=== PATIENT | male | born 1950 | race Caucasian/White ===

== ENCOUNTER 2022-03-27 02:08 | Emergency (ER) ==
[2022-03-27 04:23] LABS: ALT (SGPT) 21 U/L (8-55); AST (SGOT) 11 U/L (5-34); Albumin 3.7 g/dL (3.4-4.8); Alkaline Phosphatase 136 U/L (40-110); Anion Gap 14 mmol/L (10-20); BUN (Urea Nitrogen) 16 mg/dL (8.4-25.7); Bilirubin, Total 0.5 mg/dL (0.2-1.2); Calc. Creatinine Clearance 0 mL/min (70-130); Calcium 8.7 mg/dL (7.8-10.44); Carbon Dioxide 23 mmol/L (23-31); Chloride 105 mmol/L (98-107); Estimated GFR 53; Globulin 3.4 g/dL (2.4-3.5); Glucose 118 mg/dL (80-115); Potassium 3.9 mmol/L (3.5-5.1); Protein, Total 7.1 g/dL (5.8-8.1); Sodium 138 mmol/L (136-145)
[2022-03-27 04:24] LABS: #Eosinphils 0.1 thou/uL (0.0-0.7); #Lymphocytes 2.2 thou/uL (1.20-3.40); #Monocytes 0.9 thou/uL (0.11-0.59); #Neutrophils 6.8 thou/uL (1.40-6.50); %Basophils 0.2 % (0.0-1.0); %Eosinophils 1.3 % (0.0-10.0); %Lymphocytes 22.1 % (21.0-51.0); %Monocytes 8.7 % (0.0-10.0); %Neutrophils 67.7 % (42.0-75.0); Hemoglobin 16.3 g/dL (14.0-18.0); Mean Corpuscular HGB CONC 32.8 g/dL (32.0-36.0); Mean Corpuscular Hemoglobin 31.1 pg (27.0-31.0); Mean Corpuscular Volume 94.7 fl (78.0-98.0); Mean Platelet Volume 8.8 fL (7.4-10.4); Platelet Count 237 10x3/uL (130-400); RBC Distribution Width 13.5 % (11.5-14.5); Red Blood Cell (RBC) Count 5.25 mill/uL (4.70-6.10); White Blood Cell (WBC) Count 10.1 10x3/uL (4.8-10.8)
[2022-03-27] MEDS ORDERED: Morphine 4 MG/ML VIAL ONE (04:41)
[2022-03-27] MEDS ORDERED: Ondansetron PF 4 MG/2 ML Vial ONE (04:41)
[2022-03-27 04:47] LABS: CKMB 1.6 ng/mL (0-6.6)
[2022-03-27 05:28] LABS: Bilirubin Negative (Negative); Blood, Urine Negative (Negative); Clarity Clear (Clear); Glucose, Urine (Dipstick) >=1000 mg/dL (Negative); Ketone, Urine Negative (Negative); Leukocyte Negative Leu/uL (Negative); Nitrite Negative (Negative); Protein, Urine (Dipstick) Negative (Neg-Trace); Specific Gravity, Urine 1.009 (1.002-1.036); Urobilinogen Normal mg/dL (Less than 2)
[2022-03-27 06:32] LABS: Troponin I 0.034 ng/mL (< 0.028)
[2022-03-27] MEDS ORDERED: Iopamidol-370 76% 500 ML 1 ML ONE (10:10)
== END 2022-03-27 06:52 | disposition home or self-care (01) ==
LOC: ERS 02:08
DX: M54.9 Dorsalgia, unspecified (principal); I10 Essential (primary) hypertension; E11.9 Type 2 diabetes mellitus without complications; E78.00 Pure hypercholesterolemia, unspecified; J44.9 Chronic obstructive pulmonary disease, unspecified
CPT/HCPCS: 36415; 71275; 74174; 80053; 81003; 82553; 84484; 85025; 93005; 96374; 96375; J2270; J2405

== ENCOUNTER 2022-08-31 07:44 | Outpatient (CLI) | payer MEDICARE, BC ==
[2022-08-31] MEDS ORDERED: Iopamidol 370 76% 100 ML VIAL ONE (09:41)
== END 2022-08-31 07:45 | disposition home or self-care (01) ==
LOC: CT 07:44
PROVIDERS: ATTEND Student in an Organized Health Care Education/Training Program
DX: R10.84 Generalized abdominal pain (principal); R19.7 Diarrhea, unspecified; R63.4 Abnormal weight loss; N20.2 Calculus of kidney with calculus of ureter; K55.1 Chronic vascular disorders of intestine; I77.1 Stricture of artery; R91.1 Solitary pulmonary nodule
CPT/HCPCS: 74178; 82565

== ENCOUNTER 2022-10-08 13:31 | Outpatient (CLI) | payer MEDICARE, BC ==
[2022-10-08 15:03] LABS: Hemoglobin 15.9 g/dL (13.5-17.5); Mean Corpuscular HGB CONC 32.7 g/dL (32.0-36.0); Mean Corpuscular Hemoglobin 26.7 pg (27.0-33.0); Mean Corpuscular Volume 81.5 fl (81.2-95.1); Mean Platelet Volume 11.2 fl (7.4-10.4); Platelet Count 339 10x3/uL (150-450); RBC Distribution Width 17.8 % (11.5-14.5); Red Blood Cell (RBC) Count 5.96 10x6/uL (4.32-5.72); White Blood Cell (WBC) Count 16.6 10x3/uL (3.5-10.5)
[2022-10-08 15:28] LABS: Anion Gap 18 mmol/L (10-20); BUN (Urea Nitrogen) 10 mg/dL (8.4-25.7); Calc. Creatinine Clearance 0 mL/min (70-130); Calcium 8.9 mg/dL (7.8-10.44); Carbon Dioxide 23 mmol/L (23-31); Chloride 101 mmol/L (98-107); Estimated GFR 77; Glucose 156 mg/dL (80-115); Sodium 138 mmol/L (136-145)
== END 2022-10-08 13:32 | disposition home or self-care (01) ==
LOC: LABBT 13:31
PROVIDERS: ATTEND Thoracic Surgery (Cardiothoracic Vascular Surgery)
DX: Z01.812 Encounter for preprocedural laboratory examination (principal); I70.203 Unspecified atherosclerosis of native arteries of extremities, bilateral legs
CPT/HCPCS: 80048; 85027

== ENCOUNTER 2022-10-09 05:46 | Day surgery (SDC) | payer MEDICARE, BC ==
[2022-10-08 14:08] VITALS: BMI 28.8
[2022-10-09] MEDS ORDERED: Lidocaine 1% (PF) 30 ML VIAL ONE (06:10)
[2022-10-09] MEDS ORDERED: Heparin 10,000 UNITS/ 10 ML VIAL ONE ×2 (06:10→08:06)
[2022-10-09] MEDS ORDERED: Midazolam HCl 2 mg/2 ml Vial ONE (06:11)
[2022-10-09] MEDS ORDERED: fentaNYL 50 mcg/mL 1 mL Vial ONE (06:11)
[2022-10-09] MEDS ORDERED: CEFAZOLIN 2 GM VIAL ONE (06:49)
[2022-10-09] MEDS ORDERED: Protamine Sulfate 50 MG/5 ML VIAL ONE (08:27)
[2022-10-09] MEDS ORDERED: Clopidogrel Bisulfate 75 MG TAB ONE (09:23)
[2022-10-09] MEDS ORDERED: Iopamidol 370 76% 100 ML VIAL ONE (17:07)
== END 2022-10-09 15:23 | disposition home or self-care (01) ==
LOC: SDC 05:46
PROVIDERS: ATTEND Thoracic Surgery (Cardiothoracic Vascular Surgery)
PROC: B40DYZZ Plain Radiography of Aorta and Bilateral Lower Extremity Arteries using Other Contrast (ICD-10-PCS; principal; 2022-10-09)
DX: I70.213 Atherosclerosis of native arteries of extremities with intermittent claudication, bilateral legs (principal); K55.1 Chronic vascular disorders of intestine
CPT/HCPCS: 37236; 37237; 85347 ×2; J3010; 36245; 75726; 75774; C1725; C1769; C1874; C1887; C1894; J1644; J2001; J2250; J2720; Q9967

== ENCOUNTER 2023-04-07 14:09 | Outpatient (CLI) | payer MEDICARE, BC | END 2023-04-07 14:10 | disposition home or self-care (01) | LOC: BICRAD 14:09 | PROVIDERS: ATTEND Podiatrist | DX: L97.529 Non-pressure chronic ulcer of other part of left foot with unspecified severity (principal) ==

== ENCOUNTER 2024-06-01 13:57 | Emergency (ER) | payer MEDICARE, BC | END 2024-06-01 17:24 | disposition home or self-care (01) | LOC: ERS 13:57 | DX: I77.2 Rupture of artery (principal); M19.072 Primary osteoarthritis, left ankle and foot; Z55.6 Problems related to health literacy; F17.210 Nicotine dependence, cigarettes, uncomplicated; J44.9 Chronic obstructive pulmonary disease, unspecified; I25.2 Old myocardial infarction; I10 Essential (primary) hypertension; Z95.1 Presence of aortocoronary bypass graft | CPT/HCPCS: 99283 ==

== ENCOUNTER 2025-03-01 13:24 | Outpatient (CLI) | payer MEDICARE, BC ==
[2025-03-01 14:13] LABS: #Basophils 0.04 10x3/uL (0.0-0.2); #Eosinophils 0.08 10x3/uL (0.0-0.7); #Monocytes 0.69 10x3/uL (0.11-0.59); #Neutrophils 5.85 10x3/uL (1.40-6.50); %Basophils 0.5 % (0.0-1.0); %Eosinophils 1.0 % (0.0-10.0); %Lymphocytes 17.7 % (21.0-51.0); %Monocytes 8.5 % (0.0-10.0); %Neutrophils 71.9 % (42.0-75.0); Hematocrit 42.4 % (42.0-52.0); Hemoglobin 13.8 g/dL (14.0-18.0); Mean Corpuscular Hemoglobin 28.6 pg (27.0-31.0); Mean Corpuscular Volume 88.0 fL (78.0-98.0); Platelet Count 241 10x3/uL (130-400); Red Blood Cell (RBC) Count 4.82 mill/uL (4.70-6.10); White Blood Cell (WBC) Count 8.13 10x3/uL (4.8-10.8)
[2025-03-01 14:40] LABS: ALT (SGPT) 23 U/L (Less than 45); AST (SGOT) 23 U/L (11-34); Albumin 3.1 g/dL (3.1-4.5); Alkaline Phosphatase 134 U/L (40-110); Anion Gap 15 mmol/L (10-20); BUN (Urea Nitrogen) 14 mg/dL (8.4-25.7); Bilirubin, Total 1.0 mg/dL (0.3-1.2); Calc. Creatinine Clearance 0 mL/min (70-130); Calcium 8.6 mg/dL (7.8-10.44); Carbon Dioxide 21 mmol/L (23-31); Chloride 107 mmol/L (98-107); Globulin 4.2 g/dL (2.4-3.5); Glucose 129 mg/dL (83-110); Potassium 5.8 mmol/L (3.5-5.1); Sodium 137 mmol/L (136-145)
== END 2025-03-01 13:25 | disposition home or self-care (01) ==
LOC: LABBT 13:24
PROVIDERS: ATTEND Internal Medicine Cardiovascular Disease
DX: Z01.812 Encounter for preprocedural laboratory examination (principal); I25.10 Atherosclerotic heart disease of native coronary artery without angina pectoris
CPT/HCPCS: 80053; 85025

== ENCOUNTER 2025-03-05 06:25 | Day surgery (SDC) | payer MEDICARE, BC ==
[2025-03-05] MEDS ORDERED: Heparin 10,000 UNITS/ 10 ML VIAL ONE (07:57)
[2025-03-05] MEDS ORDERED: Lidocaine 1% (PF) 30 ML VIAL ONE (07:57)
[2025-03-05] MEDS ORDERED: Adenosine 6 mg (2 mL) VIAL ONE (07:57)
[2025-03-05] MEDS ORDERED: Nitroglycerin 50 MG/250 ML BOT 0 ML ONE (07:57)
[2025-03-05 08:06] LABS: Anion Gap 20 mmol/L (10-20); BUN (Urea Nitrogen) 18 mg/dL (8.4-25.7); Calc. Creatinine Clearance 0 mL/min (70-130); Calcium 9.0 mg/dL (7.8-10.44); Carbon Dioxide 24 mmol/L (23-31); Chloride 104 mmol/L (98-107); Glucose 102 mg/dL (83-110); Potassium 5.3 mmol/L (3.5-5.1); Sodium 143 mmol/L (136-145)
[2025-03-05] MEDS ORDERED: Iopamidol 370 76% 100 ML VIAL ONE (11:36)
== END 2025-03-05 11:25 | disposition home or self-care (01) ==
LOC: SDC 06:25
PROVIDERS: ATTEND Internal Medicine Cardiovascular Disease
DX: I25.10 Atherosclerotic heart disease of native coronary artery without angina pectoris (principal); Z53.8 Procedure and treatment not carried out for other reasons; I73.9 Peripheral vascular disease, unspecified; I25.5 Ischemic cardiomyopathy; I48.91 Unspecified atrial fibrillation; I13.0 Hypertensive heart and chronic kidney disease with heart failure and stage 1 through stage 4 chronic kidney disease, or unspecified chronic kidney disease; I50.9 Heart failure, unspecified; N18.9 Chronic kidney disease, unspecified; J44.89 Other specified chronic obstructive pulmonary disease; E78.5 Hyperlipidemia, unspecified; F17.200 Nicotine dependence, unspecified, uncomplicated; Z95.1 Presence of aortocoronary bypass graft; Z95.810 Presence of automatic (implantable) cardiac defibrillator; Z79.01 Long term (current) use of anticoagulants; Z79.51 Long term (current) use of inhaled steroids; Z79.82 Long term (current) use of aspirin; Z79.899 Other long term (current) drug therapy
CPT/HCPCS: 80048; C1769 ×2; C1887; C1894; J2003; J2250; J3010; Q9967; 36140; 75716; 99152; 99153; J0153; J1644

== ENCOUNTER 2025-03-15 12:16 | Outpatient (CLI) | payer MEDICARE, BC ==
[2025-03-15] MEDS ORDERED: Iopamidol 370 76% 100 ML VIAL ONE (14:14)
== END 2025-03-15 12:17 | disposition home or self-care (01) ==
LOC: CT 12:16
PROVIDERS: ATTEND Internal Medicine Cardiovascular Disease
DX: E87.5 Hyperkalemia (principal); I77.89 Other specified disorders of arteries and arterioles; I73.9 Peripheral vascular disease, unspecified; M19.071 Primary osteoarthritis, right ankle and foot; S93.101A Unspecified subluxation of right toe(s), initial encounter; I77.1 Stricture of artery; Z95.1 Presence of aortocoronary bypass graft
CPT/HCPCS: 75635; Q9967